=== PATIENT | male | born 1990 | race American Indian/Alaskan Native ===

== ENCOUNTER 2017-02-16 17:12 | Emergency (ER) | payer MEDICAID, OTHER ==
[2017-02-16 17:23] VITALS: RESP 18; TEMP 98.6
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
[2017-02-16 18:49] VITALS: BP 120/74; PULSE 68; O2SAT 99
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
== END 2017-02-16 18:49 | disposition home or self-care (01) ==
LOC: C.ER 17:12
DX: S39.012A Strain of muscle, fascia and tendon of lower back, initial encounter (principal); S16.1XXA Strain of muscle, fascia and tendon at neck level, initial encounter; V49.00XA Driver injured in collision with unspecified motor vehicles in nontraffic accident, initial encounter